=== PATIENT | female | born 1995 | race Caucasian/White ===

== ENCOUNTER 2017-05-31 09:35 | Outpatient (CLI) | payer BC ==
--- NOTE | 2017-05-31 10:57 | ULT ---
ULTRASOUND PELVIC WITH DOPPLER: History R10.2 pelvic pain. COMPARISON: None. TECHNIQUE: Real-time, pyle scale, and color evaluation of the pelvis performed. Transabdominal approach. FINDINGS: There appears to be an intrauterine device within the uterine fundus endometrial cavity. Endometrial thickness is 5 mm. The right ovary is not seen. The left ovary measures 2.2 x 1.5 x 2.6 cm. IMPRESSION: 1. Nonvisualization of the right ovary. Transvaginal examination would be beneficial although patie nt refused. 2. Normal appearance of left ovary. POS: [facility]
--- NOTE | 2017-05-31 10:57 | ULT ---
ULTRASOUND GALLBLADDER RIGHT UPPER QUADRANT: Date: 05/31/17 HISTORY: Right upper quadrant pain. COMPARISON: None. FINDINGS: Pancreas unremarkable. Diffuse increased hepatic echotexture. Gallbladder is unremarkable. Common bile duct upper limits of normal, measuring approximately 6.0 mm. No cholelithiasis is appreciated. Gallbladder wall thickness is normal. Right kidney measures 11.3 x 4.9 x 5.9 cm, without mass, hydronephrosis, or abnormal calcifications. IMPRESSION: 1. Increased hepatic echotexture suggesting steatosis. 2. Common bile duct size upper limits of normal measuring 6.0 mm. If clinically warranted, follow-up MRCP should be performed, although there is no intrahepatic biliary dilatation. No cholelithiasis. POS: [facility]
== END 2017-05-31 09:36 | disposition home or self-care (01) ==
LOC: ULT 09:35
PROVIDERS: ATTEND Family Medicine
DX: R10.11 Right upper quadrant pain (principal); R10.2 Pelvic and perineal pain
CPT/HCPCS: 76705; 76856; 93976